=== PATIENT | male | born 1985 | race Asian ===

== ENCOUNTER 2018-04-04 20:30 | Outpatient (CLI) | payer BC | END 2018-04-04 20:31 | disposition home or self-care (01) | LOC: SLEEPLAB 20:30 | PROVIDERS: ATTEND Family Medicine | DX: G47.33 Obstructive sleep apnea (adult) (pediatric) (principal); F41.9 Anxiety disorder, unspecified; I10 Essential (primary) hypertension; G47.00 Insomnia, unspecified; R06.83 Snoring | CPT/HCPCS: 95811 ==